=== PATIENT | male | born 1975 | race African-American/Black ===

== ENCOUNTER 2025-01-17 07:28 | Emergency (ER) | payer BC, SELFPAY ==
[2025-01-17 08:59] LABS: #Basophils Less than 0.03 10x3/uL (0.0-0.2); #Eosinophils 0.05 10x3/uL (0.0-0.7); #Monocytes 0.55 10x3/uL (0.11-0.59); #Neutrophils 1.71 10x3/uL (1.40-6.50); %Basophils 0.3 % (0.0-1.0); %Eosinophils 1.5 % (0.0-10.0); %Lymphocytes 32.4 % (21.0-51.0); %Monocytes 16.0 % (0.0-10.0); %Neutrophils 49.8 % (42.0-75.0); Hematocrit 40.0 % (42.0-52.0); Hemoglobin 13.5 g/dL (14.0-18.0); Mean Corpuscular Hemoglobin 29.2 pg (27.0-31.0); Mean Corpuscular Volume 86.6 fL (78.0-98.0); Platelet Count 227 10x3/uL (130-400); Red Blood Cell (RBC) Count 4.62 mill/uL (4.70-6.10); White Blood Cell (WBC) Count 3.43 10x3/uL (4.8-10.8)
[2025-01-17 09:07] LABS: ALT (SGPT) 32 U/L (Less than 45); AST (SGOT) 47 U/L (11-34); Albumin 4.3 g/dL (3.1-4.5); Alkaline Phosphatase 73 U/L (40-110); Anion Gap 15 mmol/L (10-20); BUN (Urea Nitrogen) 13 mg/dL (8.4-25.7); Bilirubin, Total 0.3 mg/dL (0.3-1.2); Calc. Creatinine Clearance 0 mL/min (70-130); Calcium 9.3 mg/dL (7.8-10.44); Carbon Dioxide 22 mmol/L (22-29); Chloride 106 mmol/L (98-107); Globulin 4.2 g/dL (2.4-3.5); Glucose 102 mg/dL (70-105); Potassium 4.3 mmol/L (3.5-5.1); Sodium 139 mmol/L (136-145)
[2025-01-17] MEDS ORDERED: Aspirin Chewable 81 MG TAB ONE (10:25)
[2025-01-17] MEDS ORDERED: Iopamidol 370 76% 100 ML VIAL ONE (14:09)
== END 2025-01-17 14:17 | disposition home or self-care (01) ==
LOC: ERS 07:28
DX: I25.2 Old myocardial infarction (principal); I25.10 Atherosclerotic heart disease of native coronary artery without angina pectoris; I10 Essential (primary) hypertension; E78.5 Hyperlipidemia, unspecified; F17.210 Nicotine dependence, cigarettes, uncomplicated; Z79.899 Other long term (current) drug therapy
CPT/HCPCS: 70450; 70496; 70498; 70551; 80053; 84484; 85025; 93005; Q9967